=== PATIENT | male | born 1995 | race Caucasian/White ===

== ENCOUNTER 2018-03-07 18:50 | Emergency (ER) | payer SELFPAY ==
[~2018-03-07] VITALS: Ht 175.3 cm; Wt 79.5 kg
[2018-03-07 18:52] VITALS: TEMP 98.3
[2018-03-07 21:05] VITALS: BP 149/77; PULSE 92
== END 2018-03-07 21:05 | disposition home or self-care (01) ==
LOC: COL.ER 18:50
DX: S82.852A Displaced trimalleolar fracture of left lower leg, initial encounter for closed fracture (principal); E11.9 Type 2 diabetes mellitus without complications; I10 Essential (primary) hypertension; W01.0XXA Fall on same level from slipping, tripping and stumbling without subsequent striking against object, initial encounter
CPT/HCPCS: J2704; Q4045